=== PATIENT | male | born 1995 | race Caucasian/White ===

== ENCOUNTER 2016-12-24 15:47 | Emergency (ER) | payer OTHER ==
[~2016-12-24] VITALS: Ht 180.3 cm; Wt 65.0 kg
[2016-12-24 16:01] VITALS: TEMP 37; Ht 180.3 cm; Wt 65.0 kg
--- NOTE | 2016-12-24 16:29 | EMERGENCY ROOM VISIT NOTE ---
History First contact with patient: 16:05 Chief Complaint: HEAD INJURY (MINOR) Stated Complaint: FELL, HIT HEAD, HEAD IS WARM AND HEADACHE ALL DAY History of Present Illness The patient is a 21 year old male who presents to the Emergency Room with complaints of a headache and warm sensation to his scalp after falling off of a car lift this morning. The patient reports that he was attempting to repair a broken fuel line. The patient started the vehicle and lifted the car when he noticed gas spraying out. He then tried to crawl off onto the left to shut off the car when he lost his balance and fell backward. The patient believes that he hit his head on the wall, but cannot rule out hitting his head on the floor or foundation wall. He denies any loss of consciousness. He reports that the headache has been intermittent all day. He reports minimal neck discomfort. Denies shortness of breath, abdominal pain or other injuries from his fall. He currently rates his headache a 4 out of 10 on my exam. The patient denies any prior history of concussions. Review of Systems 10 system review was performed and was negative except for pertinent positives and negatives as indicated in history of present illness Past Medical/Surgical History Medical Problems: (1) Asthma Surgical Problems: (1) No history of previous surgery Family History FH: cancer FH: diabetes mellitus FH: hypertension Social History Smoking Status: Current Every Day Smoker Smokeless Tobacco Use: Yes Drug Use: none Marital Status: single, in relationship Housing Status: lives with significant other Occupation Status: employed Physical Exam Vital Signs Date Time Temp Pulse Resp B/P (MAP) Pulse Ox O2 Delivery O2 Flow Rate FiO2 12/24/16 16:01 37.0 97 16 126/86 96 Room Air Physical Exam CONSTITUTIONAL: Healthy and well nourished. Alert and oriented X 3 with positive affect. GCS 15. Patient does not appear in any acute distress. HEENT: Examination of the scalp shows minimal left upper occiput edema. No abrasions, ecchymosis, laceration or hematoma formation. Pupils equal, round and reactive. No epistaxis, subconjunctival hemorrhage, hemotympanum, raccoon' s eyes or [place] sign. NECK: Full active range of motion without discomfort. No significant tenderness to palpation of the central cervical spine or musculature. RESPIRATORY: Clear to auscultation bilaterally with no wheezing, crackles, rhonchi or stridor. CARDIOVASCULAR: Regular rate and rhythm with no murmurs, rubs or gallops. GASTROINTESTINAL: Bowel sounds present in all quadrants. Soft and nontender to palpation. MUSCULOSKELETAL: Full range of motion of all joints without discomfort. Equal hand clam grader bilaterally. INTEGUMENTARY: No rash or other significant dermatologic conditions noted. NEUROLOGIC: Cranial nerves II-XII grossly intact. No focal neurologic deficits noted. Normal finger to nose test. Negative pronator drift. No ataxia with ambulation. Medical Decision & Procedures ED Course Patient history and physical exam were performed. Nurse's notes were reviewed. Vital signs were reviewed and were normal. The patient does not appear in any acute distress. The patient reports that his headache has been intermittent. He denies any other significant symptoms. I did discuss utilization of CT scans to rule out skull fracture and intracranial bleed. I also discussed conservative management of a left him for any progressively worsening symptoms. I did discuss the risks of radiation exposure with CT scans. At this point, the patient and fianc elected conservative management, and will return for any progressively worsening symptoms. I did suggest that her fianc awaken him once tonight to check for stability. Return to the emergency department to be relief for any further concerns or worsening symptoms. A concussion handout was provided. The patient was encouraged to refrain from alcohol and NSAIDs. Tylenol as needed for headache. The patient denies any nausea. The patient was happy with plan of care, voiced understanding of all discharge instructions, refused any analgesics while in the emergency department, and rated his headache a 4 out of 10 at the time of discharge. Medical Decision See previous section Medication Reconcilliation Current Medication List: was personally reviewed by me Blood Pressure Screening Patient's blood pressure: Normal blood pressure Impression Primary Impression: Concussion Departure Information Dispostion Home / Self-Care Forms HOME CARE DOCUMENTATION FORM, IMPORTANT VISIT INFORMATION Patient Instructions Concussion, My [facility] Additional Instructions Read concussion handout. Avoid strenuous activities until all concussion symptoms resolve. Tylenol 1000 mg every 6-8 hours as needed for pain. Follow-up with your family doctor as needed for further concussion management. Return to the emergency department for any progressively worsening headache, persistent vomiting, unusual drowsiness or other concerning symptoms. Problem Qualifiers Primary Impression: Concussion Encounter type: initial encounter Loss of consciousness presence/duration: without LOC Qualified Codes: S06.0X0A - Concussion without loss of consciousness, initial encounter
[2016-12-24 16:34] VITALS: BP 124/79; PULSE 80; O2SAT 96
== END 2016-12-24 16:35 | disposition home or self-care (01) ==
LOC: C.EDB 15:49 → C.EDD 16:35
DX: S06.0X0A Concussion without loss of consciousness, initial encounter (principal); W17.89XA Other fall from one level to another, initial encounter; J45.909 Unspecified asthma, uncomplicated; F17.200 Nicotine dependence, unspecified, uncomplicated; Z83.3 Family history of diabetes mellitus; Z82.49 Family history of ischemic heart disease and other diseases of the circulatory system